=== PATIENT | female | born 1940 | race Caucasian/White ===

== ENCOUNTER → 2017-02-16 | Outpatient (CLI) | payer MEDICARE, BC ==
[~2017-02-16] MED LIST: ACETAMINOPHEN650 M2 PO; ALBUTEROL17 GM INH; ALLEGRA PO; ALLEGRA180 MG PO; ASPIRIN PO; ASPIRIN81 M1 PO; ASPIRIN81 M2 PO; ASPIRIN81 MG PO; AZITHROMYCIN250 MG PO; BUSPIRONE HCL10 M1 PO; BUSPIRONE HCL10 MG PO; CALCIUM + D PO; CALCIUM + VIT1 EACH PO; CALCIUM + VITAM1 TAB PO; CALCIUM1 TAB.CHEW PO; COUGHTAB200 MG PO; COZAAR25 MG PO; CRESTOR PO; DEMADEX PO; DEMADEX10 MG PO; DOXYCYCLINE HY100 M3 PO; FAMOTIDINE PO; FERROUS SULFATE1 TAB PO; FLUOXETINE HCL40 M1 PO; GLUCOPHAGE500 MG PO; HUMALOG100 U/ML SQ; HUMALOG100 U/ML SUBQ; HUMALOG100 UNIT/1; HUMALOG100 UNIT/1 SUBQ; LANTUS100 U/ML INJ; LANTUS100 U/ML SUBQ; LANTUS100 UNITS/ SQ; LEVOTHROID125 MCG; LOMOTIL TABLET1 TAB PO; LORTAB 10-5001 EACH PO; LOSARTAN POTASS50 MG PO; LOVASTATIN20 M1 PO; LOVASTATIN20 M2 PO; LOW DOSE ASPIRI81 M2 PO; MAG-OX 400400 M1 PO; METFORMIN PO; MOBIC; PEPCID PO; PHENERGAN PR; PHENERGAN/CODEIN5 ML PO; POTASSIUM; PRILOSEC PO; PRILOSEC20 MG PO; PROZAC PO; SYNTHROID PO; SYNTHROID125 PO; TORSEMIDE10 M1 PO; VICTOZA0.6 MG/0.1 SQ; VICTOZA0.6 MG/0.1 SUBQ
--- NOTE | ~2017-02-16 | US37 ---
[facility] A Service of [facility] & [facility] RADIOLOGY TEXT RESULTS PATIENT: ELLY BUTTS LOCATION: CNIV : 40 UNIT #: [id number] AGE: [address]: Britney Villalta SEX: F ORDER DR: [id number] [facility] [address] [place], [place] [address] [id number] O MR#: [id number] Acc #: [id number] NAME: ELLY BUTTS. : 1940 SEX: F STUDY DATE/TIME: 02/16/2017 12:36 UNIT: CNIV ROOM: STUDY DESCRIPTION: US Carotid W/Doppler Bilateral Attending Physician: Britney Villalta A.P.R.N. Referring Physician: Britney Villalta A.P.R.N. Ordering Physician: Britney Villalta A.P.R.N. Primary Care Physician: Lux Torres M.D. MEDICAL IMAGING REPORT This report is preliminary unless electronic signature is present EXAM Bilateral carotid duplex, 02/16/2017. HISTORY Symptomatic carotid artery stenosis. FINDINGS Duplex imaging of the carotid arteries was performed. The right common carotid artery is patent. Heterogeneous hyperechoic plaque is seen in the right internal carotid artery, which is irregular, with posterior shadowing. Velocity in the right common carotid is 86, internal is 239/61 proximally, 85/8 mid portion, and 131/26 distally. External is 152 cm/sec. Right ICA:CCA ratio is 2.8. On the left side, the common carotid artery is patent. Plaque is seen in the left internal carotid artery. Velocity in the left common carotid is 124, internal is 90 proximally, 135 mid portion, 110 distally. External is 97 cm/sec. Left ICA:CCA ratio is 1.1. Antegrade flow is seen in the right and left vertebral arteries. IMPRESSION 1. Plaque with severe stenosis in the range of greater than 70% is seen in the right internal carotid artery proximally. 2. Plaque with 50% to 69% stenosis is seen in the mid internal carotid artery on the left side. 3. Antegrade flow is seen in the right and left vertebral arteries. Dictated by... [facility] A Service of [facility] & [facility] RADIOLOGY TEXT RESULTS PATIENT: ELLY BUTTS LOCATION: [facility] : 40 UNIT #: [id number] AGE: [address]: Britney Villalta SEX: F ORDER DR: Tonny Odonnell M.D. THIS IS AN ELECTRONICALLY VERIFIED REPORT Tonny Odonnell M.D. at 02/17/2017 9:44 AM Jason TD: 02/16/2017 18:09 JOB #: [id number] MEDICAL IMAGING REPORT Page 1 of 1 COPY
== END | disposition home or self-care (01) ==
LOC: CNIV 12:05
DX: I65.29 Occlusion and stenosis of unspecified carotid artery (principal); I65.23 Occlusion and stenosis of bilateral carotid arteries
CPT/HCPCS: 93880

== ENCOUNTER 2017-04-19 00:28 | Observation (INO) | payer MEDICARE, BC ==
--- NOTE | ~2017-04-19 | EKG ---
PATIENT: ELLY BUTTS UNIT #: [id number] Ventricular Rate: 72 BPM Atrial Rate: 72 BPM P-R Interval: 190 ms QRS Duration: 86 ms Q-T Interval: 444 ms QTC Calculation(Bezet): 486 ms P [place]: 83 degrees Calculated R [place]: 67 degrees Calculated T [place]: 82 degrees Diagnosis Line: Normal sinus rhythm with sinus arrhythmia Diagnosis Line: Poor R wave progression questionable lead position Diagnosis Line: or body habitus Diagnosis Line: Borderline ECG Diagnosis Line: No previous ECGs available Diagnosis Line: Confirmed by STEWART OVALLES MD ([id number]) on Diagnosis Line: 04/19/2017 10:46:56 PM INTERPRETING MD: PAUL
--- NOTE | ~2017-04-19 | A ---
[facility] Nutrition Therapy DATE: 04/20/17 Patient: ELLY BUTTS Physician: EDWARDO Address: [address] Room/Bed: [address] [place] [address], Zip: [place] [address] Admit Date: 04/19/17 Date of : 40 Height: Weight: 142 64.8 NUTRITIONAL ASSESSMENT: REASON: Consult re: BM diet education Dx: high blood sugar PMH: DM, HTN, hypothyroidism, depression Anthropometrics: ht: 5'4" wt: 142# (64.5 kg) BMI: 24 Labs: Glu 195, Phos 2.1, accuchecks 90-159, HgbA1c 9.9, GFR 48.7 Meds: levemir, novolog, lipitor, pepcid, zofran, synthroid, NaCl I/O & Bowel function: 2663/5 Skin Integrity: normal Assessment: Chart reviewed, events noted. Pt seen for consult re: diabetes diet education. RD internal communications specialist visited pt at bedside and provided written and verbal diet education for diabetes and carbohydrate counting. Pt reports loosely following a diabetic diet at home. RD internal communications specialist answered several questions from pt regarding foods to eat and how to count carbs. Pt had no other questions at this time. Intervention: DM diet education Recommendations: 1. Pt would benefit from seeing an outpatient RD and/ or attending classes at her local health dept. Please consult RD for any further nutritional needs. Respectfully, BALAJI COREA, [employer] [facility] cc: client file
--- NOTE | ~2017-04-19 | DS ---
Unit #: [id number] #: [id number] Patient: ELLY BUTTS [id number] [address] [address] [id number] I MR#: [id number] NAME: ELLY BUTTS. ROOM: 567 Age: 76 Sex: F Admission Date: 04/19/2017 : 1940 Discharge Date: 04/22/2017 Attending Physician: Wei Lucas M.D. Primary Care Physician: Lux Torres M.D. DISCHARGE SUMMARY ADMISSION DIAGNOSES 1. Diabetic ketoacidosis. 2. Hypertension. DISCHARGE DIAGNOSES 1. Non versus mild diabetic ketoacidosis hyperglycemia. 2. Hypertension. 3. Hypoglycemia, improving. 4. Hypokalemia, resolved. 5. Hypomagnesemia, improving. 6. Anxiety. 7. History of major depressive disorder, chronic, recurrent, established with Dr. Curry at [facility]. 8. Noncompliance with home insulin regimen versus inability to consistently take insulin secondary to forgetfulness. CONSULTANTS 1. Lizeth Lujan M.D.- Endocrinology. 2. basket turner for diabetes mellitus diet education. PROCEDURES None. CONDITION Stable. DISPOSITION Home with family. RECENT DIAGNOSTIC STUDIES Hemoglobin A1c 9.9, sodium 140, potassium 4.3, chloride 109, CO2 25, glucose 194, BUN 15, creatinine 1.0, calcium 8.6, magnesium 1.6, TSH 1.32, WBC 9.0, hemoglobin 14.9, hematocrit 45.6, platelets 262,000. Beta-hydroxybutyrate on admission 3.13. IMAGING: CT of the head without contrast. Impression - no acute intracranial findings. Portable chest x-ray. Impression - no active process. DISCHARGE MEDICATIONS Pending further recommendations of Dr. Lujan who is to see the patient prior to discharge today: Unit #: [id number] #: [id number] Patient: ELLY BUTTS 1. Mag ox 400, one p.o. b.i.d. x10 days. 2. Fluoxetine 40 mg p.o. b.i.d. 3. BuSpar 10 mg p.o. b.i.d. 4. Torsemide 10 mg p.o. daily. 5. Lovastatin 20 mg p.o. daily. 6. Cozaar 25 mg p.o. daily. 7. Pepcid 20 mg p.o. daily. 8. Aspirin 81 mg p.o. daily. 9. Calcium plus vitamin D plus vitamin K, two tabs, 600 mg p.o. b.i.d. 10. Synthroid 100 mcg p.o. daily. Please note the following changes to the patient's home insulin medication - the patient has been receiving Levemir during the hospitalization as an auto-substitution by the pharmacy. At the time of this dictation, the patient is receiving the following anti-diabetic medications: 1. Levemir 10 units subcu in the morning. 2. Insulin aspart U 100 insulin, 2 units subcu t.i.d. before meals. 3. NovoLog U 100 insulin, 1 unit for every 50 mg over blood sugar of 200. Again, any changes to these medications will be made by Dr. Lujan prior to discharge today. DISCHARGE INSTRUCTIONS The patient is to call and schedule a followup appointment with her primary care physician in five to seven days. She is also to call and schedule a followup appointment with Dr. Lujan per his recommendations when he sees her this afternoon. The patient is to follow a constant carbohydrate diet. HOSPITAL COURSE The patient is a 76-year-old female who presented to [facility] on the date of admission with complaints of feel bad. She was complaining of dizziness with associated nausea as well as polyuria and polydipsia. Symptoms had progressed over the past week. Accu-Chek in the emergency department revealed a blood sugar of 497. The patient was diagnosed with mild DKA; however, was placed on non-DKA insulin drip protocol. The patient received hydration with IV fluids and her blood glucose gradually improved. Insulin drip was ultimately discontinued and patient was transferred to long acting as well as insulin at mealtimes. The patient was noted to have several hypoglycemic episodes throughout the 24 hour period. At that time, Dr. Lujan was consulted for further endocrine evaluation and management. The patient reported to me that she often forgets to take her insulin at home. She also tells me that she has had episodes of hypoglycemia at home and has been seeing Dr. Lux Torres, her primary care physician, for diabetic management. She has reported hypoglycemic episodes to him and, per review of the office records, he has made small adjustments in her insulin dosages. The patient also tells me that she was previously under the care of Dr. Lujan but has not been following up with him as recommended. The patient was evaluated by Dr. Lujan yesterday afternoon and patient was placed on Levemir 10 units daily in the morning, NovoLog subcu 2 units with each meal, and NovoLog sliding scale insulin, 1 unit for every 50 mg that her blood sugar is over 200. The patient's blood sugars have been elevated without hypoglycemic episodes today. She is awake, alert and asking to go home. She has been mildly tearful today and verbalized stress because of her recent hospitalization. She will follow up both with Dr. Torres, Dr. Lujan and Dr. Curry at [facility] Unit #: [id number] #: [id number] Patient: [facility] as dictated above. We are awaiting evaluation by Dr. Lujan at the time of this dictation. The nurses are to call prior to DC. Dictated by... Chelsy Posada A.P.R.N. for Asher Alexis/allyn TD: 04/24/2017 08:06 JOB #: [id number] DISCHARGE SUMMARY Page 1 of 1 X Chelsy Posada APRN X DISCHARGE SUMMARY
--- NOTE | ~2017-04-19 | CO ---
Unit #: [id number] #: [id number] Patient: ELLY BUTTS [id number] [facility]. [place], [place] [address] [id number] MR#: [id number] NAME: ELLY BUTTS. ROOM: 567 Age: 76 Sex: F Admission Date: 04/19/2017 : 1940 Attending Physician: Wei Lucas M.D. Primary Care Physician: Lux Torres M.D. CONSULTATION REPORT REASON FOR CONSULTATION Management of diabetes mellitus. HISTORY OF PRESENT ILLNESS This is a 76-year-old female with history of type 2 diabetes mellitus, GERD, history of blood clots, type 2 diabetes mellitus, insulin dependent, hypothyroidism, hypertension, and anxiety disorder, was presented to the emergency room for the generalized weakness and high blood sugars. On her arrival in the emergency room, her blood glucose levels were very high. She has some positive ketones. She was started on insulin drip, which she was transferred to the unit bed. Insulin drip was discontinued. She was treated with the subcu insulin. Currently, the patient has been on Levemir 12 units in the morning and 13 units at bedtime; however, the patient did receive 25 units of Lantus when the insulin drip was discontinued this morning. The patient had a blood glucose level of 46 and she has been having recurrent episodes of hypoglycemia this evening too. I have been asked to see the patient for further management. PAST MEDICAL HISTORY See HPI. MEDICATIONS Now medication list is reviewed. The patient is on Lantus 30 units daily in the morning, Humalog 10 units with the evening meal. Other medication includes Prozac, losartan, Lasix, buspirone, aspirin, Pepcid. ALLERGIES To sulfa drugs, levofloxacin, latex, ibuprofen. SOCIAL HISTORY Lives at home. Smokes half pack per day. Declines alcohol or illicit drugs. Lives by herself. FAMILY HISTORY Noncontributory. REVIEW OF SYSTEMS A 12-point review of systems completed, is unremarkable except as noted in HPI. PHYSICAL EXAMINATION GENERAL: She is awake, alert, oriented to time, place, and person. VITAL SIGNS: She is afebrile. Temperature 98.4, pulse 67, blood pressure 124/50. Unit #: [id number] #: [id number] Patient: ELLY BUTTS HEENT: EOMI. Pupils equally reactive to light. NECK: Supple. No thyromegaly noted. CHEST: Good air entry. CVS: Regular rhythm. No murmurs. ABDOMEN: Soft and nontender. Bowel sounds positive. EXTREMITIES: No edema noted. DIAGNOSTIC STUDIES LABORATORY RESULTS: On her labs, glucose was 46 this morning. Sodium 138, potassium 3.4, chloride 111, CO2 is 22, mag is 1.5, phosphorus 2.1. A1c is 9.9. TSH is 1.3. ASSESSMENT The patient had type 2 diabetes mellitus, admitted with the hyperosmolar hyperglycemia and treated with insulin drip, which has been discontinued. The patient has been having recurrent episodes of hypoglycemia, on the subcu insulin. PLAN We will change the Levemir to 10 units in the morning daily, NovoLog 2 units subcu with each meal. Get the nutrition consult. Discussed with the patient at the need for compliance with her medications and her diet. Discussed the patient at length. The goals of the diabetes treatment and the A1c goal between 7 and 8. We will follow the patient as an outpatient. Thanks again for consultation. Dictated by... Asher Velarde/katina TD: 04/22/2017 13:36 JOB #: [id number] CONSULTATION REPORT Page 1 of 1 X Lizeth Lujan MD CONSULTATION REPORT
--- NOTE | ~2017-04-19 | CR72 ---
[facility] A Service of [facility] RADIOLOGY TEXT RESULTS PATIENT: ELLY BUTTS LOCATION: [facility] 5601 : 40 UNIT #: [id number] AGE: [address]: Wei Lucas MD SEX: F ORDER DR: [id number] [facility] [address] [place], [place] [address] [id number] MR#: [id number] Acc #: [id number] NAME: ELLY BUTTS : 1940 SEX: F STUDY DATE/TIME: 04/19/2017 1:56 UNIT: LIZZY ROOM: STUDY DESCRIPTION: CR Chest Single View Portable Attending Physician: Corey Amos M.D. Ordering Physician: Corey Amos M.D. Primary Care Physician: Lux Torres M.D. MEDICAL IMAGING REPORT This report is preliminary unless electronic signature is present EXAM Portable chest INDICATION Shortness of air and weakness today. PROCEDURE Frontal view chest. COMPARISON 12/13/2015 FINDINGS Heart size is normal. No dense consolidation, pleural fluid or pneumothorax. IMPRESSION No active process. Dictated by... Jaquan Grover M.D. THIS IS AN ELECTRONICALLY VERIFIED REPORT Jaquan Grover M.D. at 04/19/2017 10:23 PM EED/michael TD: 04/19/2017 04:02 JOB #: [id number] MEDICAL IMAGING REPORT [facility] A Service of [facility] RADIOLOGY TEXT RESULTS PATIENT: ELLY BUTTS LOCATION: [facility] 567 : 40 UNIT #: [id number] AGE: [address]: Wei Lucas MD SEX: F ORDER DR: Page 1 of 1 COPY
--- NOTE | ~2017-04-19 | HP ---
Unit #: [id number] #: [id number] Patient: ELLY BUTTS [id number] [address] [address] [id number] I MR#: [id number] NAME: ELLY BUTTS. ROOM: 567 Age: 76 Sex: F Admission Date: 04/19/2017 : 1940 Attending Physician: Wei Lucas M.D. Primary Care Physician: Lux Torres M.D. HISTORY AND PHYSICAL CHIEF COMPLAINT Feel bad. HISTORY OF PRESENT ILLNESS The patient is a 76-year-old diabetic female who presented to [facility] secondary to feeling bad. She states that she has been somewhat dizzy and she has had some nausea. She has had associated polyuria and polydipsia. Symptoms have been progressive over the past week or so. She denies any alleviating factors. In the emergency department she is noted to have blood sugar of 497. PAST MEDICAL HISTORY Diabetes, hypertension, hypothyroidism, depression. PAST SURGICAL HISTORY Hysterectomy, cholecystectomy, cataract surgery, foot surgery, she has had a vein stripping. SOCIAL HISTORY The patient lives alone, denies alcohol, tobacco and illicit drug use. She has a son in town. ALLERGIES Sulfa, Levaquin and latex. REVIEW OF SYSTEMS A 10-point review of systems was obtained, negative except as per HPI. FAMILY HISTORY Reviewed and noncontributory in this 76-year-old female. HOME MEDICATIONS 1. Aspirin 81 mg daily. 2. Pepcid 20 mg daily. 3. Calcium plus vitamin D 600 mg p.o. b.i.d. 4. Humalog 10 units a.c. 5. Lantus 30 units daily. 6. BuSpar 10 mg p.o. b.i.d. 7. Fluoxetine 40 mg p.o. b.i.d. 8. Losartan 25 mg p.o. daily. 9. Furosemide 10 mg p.o. daily. 10. Lovastatin 20 mg daily. 11. Synthroid 100 mcg p.o. daily. Unit #: [id number] #: [id number] Patient: ELLY BUTTS PHYSICAL EXAMINATION VITAL SIGNS: Temperature 97.6. Pulse 65. Blood pressure 140/65. GENERAL: A 76-year-old female in no acute distress, who appears stated age. HEENT: Pupils are equally round. Extraocular movements intact. Mucous membranes dry. NECK: Supple. No JVD. No lymphadenopathy. CARDIAC: Regular rate and rhythm. No murmurs, gallops or rubs. LUNGS: Clear to auscultation bilaterally. ABDOMEN: Nontender, nondistended. Bowel sounds positive. EXTREMITIES: No cyanosis, clubbing or edema. They are warm and dry. PSYCHIATRIC: Alert and oriented x3. Affect is appropriate. NEUROLOGICAL: Cranial nerves II-XII intact grossly. The patient moves all extremities equally and with purpose. SKIN: No rashes, bruises or ulcers. MUSCULOSKELETAL: No muscle or joint pain. No muscle or joint swelling. DIAGNOSTIC STUDIES LABORATORY: The patient's blood sugar is 497, anion gap is 15, beta hydroxybutyrate is 3.13. IMAGING: CT head shows no acute abnormalities. Chest x-ray shows no active process. ASSESSMENT AND PLAN 1. Diabetic ketoacidosis: The patient has been started on insulin drip per protocol. Fluids and potassium replacement as per protocol as well. 2. Hypertension: Continue home meds. 3. Prophylaxis: The patient has been started on Lovenox. Dictated by Wei Lucas M.D. PAZ/raiel TD: 04/21/2017 20:50 JOB #: [id number] HISTORY AND PHYSICAL Page 1 of 1 X Wei Lucas MD HISTORY AND PHYSICAL
--- NOTE | ~2017-04-19 | CT71 ---
[facility] A Service of [facility] RADIOLOGY TEXT RESULTS PATIENT: ELLY BUTTS LOCATION: [facility] : 40 UNIT #: [id number] AGE: [address]: Wei Lucas MD SEX: F ORDER DR: [id number] [facility] [address] [facility] [facility] [place], [place] [address] [id number] I MR#: [id number] Acc #: [id number] NAME: ELLY BUTTS : 1940 SEX: F STUDY DATE/TIME: 04/19/2017 2:52 UNIT: [facility] ROOM: [facility] STUDY DESCRIPTION: CT Head Wo Contrast Attending Physician: Wei Lucas M.D. Ordering Physician: Corey Amos M.D. Primary Care Physician: Lux Torres M.D. MEDICAL IMAGING REPORT This report is preliminary unless electronic signature is present EXAM CT head without contrast INDICATIONS Hyperglycemia, confusion today. PROCEDURE Unenhanced CT head. This CT exam was performed with one or more of the following radiation dose reduction techniques: Automatic exposure control, adjustment of mA and/or kV according to patient size, and iterative reconstruction. COMPARISON None FINDINGS No acute hemorrhage, abnormal mass effect, extraaxial collection, or hydrocephalus. No convincing evidence for acute or early subacute large territory infarct. No depressed calvarial fracture. Paranasal sinuses mastoid air cells clear. IMPRESSION No acute intracranial findings. Dictated by... Jaquan Grover M.D. THIS IS AN ELECTRONICALLY VERIFIED REPORT Jaquan Grover M.D. at 04/19/2017 10:22 PM EED/aa TD: 04/19/2017 13:10 [facility] A Service [facility] RADIOLOGY TEXT RESULTS PATIENT: ELLY BUTTS LOCATION: [facility] : 40 UNIT #: [id number] AGE: [address]: Wei Lucas MD SEX: F ORDER DR: ROBERT #: [id number] MEDICAL IMAGING REPORT Page 1 of 1 COPY
[~2017-04-19 00:28] MED LIST changes: -ASPIRIN81 MG PO; -CALCIUM + VIT1 EACH PO; -FAMOTIDINE PO; -HUMALOG100 UNIT/1; -HUMALOG100 UNIT/1 SUBQ; -MAG-OX 400400 M1 PO; -TORSEMIDE10 M1 PO
[2017-04-19 02:03] LABS: BASOPHIL# 0.1 X10e3 (0-0.3); BASOPHIL% 1.2 % (0-2.5); EOSINOPHIL# 0.2 X10e3 (0-0.7); EOSINOPHIL% 2.6 % (0.0-7.0); HEMATOCRIT 45.6 % (35.0-45.0); HEMOGLOBIN 14.9 gm/dL (12.0-16.0); LYMPHOCYTE# 2.5 X10e3 (1.0-3.5); LYMPHOCYTE% 27.9 % (17.0-45.0); MEAN CELL VOLUME 93.1 FL (83-96); MEAN CORPUSCULAR HEMOGLOBIN 30.5 PG (28-34); MEAN CORPUSCULAR HGB CONC 32.7 g/dL (30-36); MEAN PLATELET VOLUME 8.1 FL (6.5-11.5); MONOCYTE# 0.7 X10e3 (0-1.0); MONOCYTE% 7.6 % (3.0-12.0); NEUTROPHIL# 5.5 X10e3 (1.5-7.1); NEUTROPHIL% 60.7 % (40-75); PLATELET COUNT 262 X10e3 (140-420)
[2017-04-19 02:04] LABS: DIFF IND NO
[2017-04-19 02:16] LABS: POC - CKMB 2.5 ng/mL (0.0-7.9); POC - TROPONIN <0.05 ng/mL (<=0.05)
[2017-04-19 02:18] LABS: PARTIAL THROMBOPLASTIN TIME 27.5 SECONDS (23.5-31.3); PROTHROMBIN TIME (PATIENT) 10.4 SECONDS (10.0-11.7)
[2017-04-19 02:26] LABS: ALBUMIN SERUM 4.2 g/dL (3.5-5.0); BILIRUBIN, DIRECT 0.3 mg/dL (0.0-0.2); BILIRUBIN,INDIRECT 1.1 mg/dL (0.0-0.9); BILIRUBIN,TOTAL 1.4 mg/dL (0.2-2.0); BUN/CREATININE RATIO 16.87; CALCIUM SERUM 9.2 mg/dL (8.4-10.2); CREATININE SERUM 1.6 mg/dL (0.6-1.4); POTASSIUM 4.1 mmol/L (3.5-5.1); PROTEIN TOTAL SERUM 7.4 g/dL (6.0-8.3)
[2017-04-19 02:58] LABS: URINE SOURCE CLEAN CATCH
[2017-04-19 03:00] LABS: URINE APPEARANCE CLEAR; URINE BILIRUBIN NEG (NEG); URINE BLOOD NEG (NEG); URINE COLOR YELLOW; URINE GLUCOSE >1000 MG/DL (NEG); URINE KETONE 1+ (NEG); URINE LEUKOCYTE ESTERASE NEG (NEG); URINE NITRATE NEG (NEG); URINE PROTEIN NEG (NEG); URINE SPECIFIC GRAVITY 1.022 (1.003-1.035); URINE UROBILINOGEN 0.2 MG/DL (NEG)
[2017-04-19 03:29] LABS: CULTURE INDICATED? NO
[2017-04-19 04:32] LABS: ARTERIAL BLD GAS O2 SATURATION 90.7 % (90.0-100.0); ARTERIAL BLOOD GAS CARBOXY HB 2.9 %sat (0.0-9.0); ARTERIAL BLOOD GAS HCO3 18.2 mmol/L; ARTERIAL BLOOD GAS MET HB 0.6 %sat (0.0-2.0); ARTERIAL BLOOD GAS PCO2 33.4 mmHg (35.0-45.0); ARTERIAL BLOOD GAS pH 7.345 (7.350-7.450)
[2017-04-19 04:33] LABS: ARTERIAL BLOOD GAS ALLEN TEST NORMAL; ARTERIAL BLOOD GAS ART SITE LEFT RADIAL; ARTERIAL BLOOD GAS DELIVERY ROOM AIR; ARTERIAL BLOOD GAS PO2 66.4 mmHg (80.0-100); ARTERIAL DRAW? YES
[2017-04-19] MEDS ORDERED: SYNTHROID PO (04:39)
[2017-04-19] MEDS ORDERED: TORSEMIDE10 M1 PO (04:40)
[2017-04-19] MEDS ORDERED: COZAAR25 MG PO (04:40)
[2017-04-19] MEDS ORDERED: FLUOXETINE HCL40 M1 PO (04:40)
[2017-04-19] MEDS ORDERED: LOVASTATIN20 M2 PO (04:40)
[2017-04-19] MEDS ORDERED: BUSPIRONE HCL10 M1 PO (04:41)
[2017-04-19] MEDS ORDERED: HUMALOG100 UNIT/1 SUBQ (04:42)
[2017-04-19] MEDS ORDERED: LANTUS100 U/ML SUBQ (04:42)
[2017-04-19] MEDS ORDERED: ASPIRIN81 MG PO (04:43)
[2017-04-19] MEDS ORDERED: FAMOTIDINE PO (04:43)
[2017-04-19] MEDS ORDERED: CALCIUM + VIT1 EACH PO (04:43)
[2017-04-19 14:59] LABS: BUN/CREATININE RATIO 21.33; CALCIUM SERUM 8.9 mg/dL (8.4-10.2); CREATININE SERUM 1.5 mg/dL (0.6-1.4); GLOM FILT RATE Estimated 33.5 mL/min (>60); POTASSIUM 4.5 mmol/L (3.5-5.1)
[2017-04-20 07:04] LABS: BUN/CREATININE RATIO 17.27; CALCIUM SERUM 8.7 mg/dL (8.4-10.2); CREATININE SERUM 1.1 mg/dL (0.6-1.4); GLOM FILT RATE Estimated 48.7 mL/min (>60); POTASSIUM 3.7 mmol/L (3.5-5.1)
[2017-04-21 06:11] LABS: BUN/CREATININE RATIO 17.5; CALCIUM SERUM 8.5 mg/dL (8.4-10.2); CREATININE SERUM 0.8 mg/dL (0.6-1.4); GLOM FILT RATE Estimated 71.7 mL/min (>60); MAGNESIUM 1.5 mg/dL (1.6-3.0); POTASSIUM 3.4 mmol/L (3.5-5.1)
[2017-04-22 07:42] LABS: CALCIUM SERUM 8.6 mg/dL (8.4-10.2); GLOM FILT RATE Estimated 54.7 mL/min (>60); MAGNESIUM 1.6 mg/dL (1.6-3.0); POTASSIUM 4.3 mmol/L (3.5-5.1)
[2017-04-22] MEDS ORDERED: MAG-OX 400400 M1 PO (18:00)
[2017-04-22] MEDS ORDERED: HUMALOG100 UNIT/1 (18:04)
== END 2017-04-22 20:16 | disposition home or self-care (01) ==
LOC: CED 00:28 → CEDOF 05:16 → C5C 05:16 → CEDOF 05:25 → CED 05:25 → CEDOF 06:50 → C5C 07:54 → CEDOF 07:54 → C5C 07:54
PROVIDERS: Emergency Medicine; Internal Medicine; Nurse Practitioner
DX: E13.10 Other specified diabetes mellitus with ketoacidosis without coma (principal); Z79.4 Long term (current) use of insulin; Z91.14 Patient's other noncompliance with medication regimen; I10 Essential (primary) hypertension; E83.42 Hypomagnesemia; K21.9 Gastro-esophageal reflux disease without esophagitis; F41.9 Anxiety disorder, unspecified; Z79.82 Long term (current) use of aspirin; Z79.899 Other long term (current) drug therapy; F17.200 Nicotine dependence, unspecified, uncomplicated; Z90.710 Acquired absence of both cervix and uterus; Z90.49 Acquired absence of other specified parts of digestive tract; Z98.890 Other specified postprocedural states; Z88.2 Allergy status to sulfonamides; Z88.1 Allergy status to other antibiotic agents; Z91.040 Latex allergy status
CPT/HCPCS: 36415; 36600; 70450; 71010; 80048; 80076; 81003; 82010; 82553; 82803; 82947; 83036; 83735; 84443; 84484; 85025; 85610; 85730; 93005; 96361; 96374; 99285; G0378; J1815; J2405

== ENCOUNTER 2017-04-30 13:40 | Emergency (ER) | payer MEDICARE, BC ==
[~2017-04-30 13:40] MED LIST changes: +ASPIRIN81 MG PO; +CALCIUM + VIT1 EACH PO; +FAMOTIDINE PO; +HUMALOG100 UNIT/1; +HUMALOG100 UNIT/1 SUBQ; +MAG-OX 400400 M1 PO; +TORSEMIDE10 M1 PO
[2017-04-30 15:33] LABS: URINE SOURCE CLEAN CATCH
[2017-04-30 15:38] LABS: BASOPHIL% 0.2 % (0-2.5); EOSINOPHIL# 0.1 X10e3 (0-0.7); HEMATOCRIT 42.7 % (35.0-45.0); HEMOGLOBIN 14.1 gm/dL (12.0-16.0); LYMPHOCYTE# 1.6 X10e3 (1.0-3.5); LYMPHOCYTE% 22.7 % (17.0-45.0); MEAN CORPUSCULAR HEMOGLOBIN 30.4 PG (28-34); MONOCYTE# 0.5 X10e3 (0-1.0); MONOCYTE% 6.5 % (3.0-12.0); NEUTROPHIL# 4.9 X10e3 (1.5-7.1); NEUTROPHIL% 68.6 % (40-75); PLATELET COUNT 253 X10e3 (140-420); RED BLOOD COUNT 4.64 X10e (3.90-5.30); RED CELL DISTRIBUTION WIDTH 12.7 % (11.0-15.5); WHITE BLOOD COUNT 7.1 X10e3 (4.0-10.5)
[2017-04-30 15:41] LABS: DIFF IND NO
[2017-04-30 15:41] LABS: URINE APPEARANCE CLEAR; URINE BILIRUBIN NEG (NEG); URINE BLOOD TRACE (NEG); URINE COLOR YELLOW; URINE GLUCOSE >1000 MG/DL (NEG); URINE KETONE 2+ (NEG); URINE LEUKOCYTE ESTERASE NEG (NEG); URINE NITRATE NEG (NEG); URINE PROTEIN NEG (NEG); URINE SPECIFIC GRAVITY 1.026 (1.003-1.035); URINE UROBILINOGEN 0.2 MG/DL (NEG)
[2017-04-30 15:44] LABS: URINE BACTERIA AUWI NEG (NEGATIVE); URINE SQUAMOUS EPITHELIAL CELL NONE SEEN /[HPF]; UWBCS1 AUWI 0-2 (0-5)
[2017-04-30 15:49] LABS: CULTURE INDICATED? NO
[2017-04-30 16:08] LABS: ALBUMIN SERUM 3.9 g/dL (3.5-5.0); BETA HYDROXYBUTYRATE 2.67 MMOL/L (0.02-0.27); BILIRUBIN, DIRECT 0.3 mg/dL (0.0-0.2); BILIRUBIN,INDIRECT 1.2 mg/dL (0.0-0.9); BILIRUBIN,TOTAL 1.5 mg/dL (0.2-2.0); BUN/CREATININE RATIO 19.28; CALCIUM SERUM 8.8 mg/dL (8.4-10.2); CREATININE SERUM 1.4 mg/dL (0.6-1.4); GLOM FILT RATE Estimated 36.4 mL/min (>60); POTASSIUM 4.8 mmol/L (3.5-5.1)
[2017-04-30 18:01] LABS: BETA HYDROXYBUTYRATE 1.34 MMOL/L (0.02-0.27); CALCIUM SERUM 7.9 mg/dL (8.4-10.2); CREATININE SERUM 1.2 mg/dL (0.6-1.4); GLOM FILT RATE Estimated 43.9 mL/min (>60); POTASSIUM 4.1 mmol/L (3.5-5.1)
== END 2017-04-30 21:20 | disposition home or self-care (01) ==
LOC: CED 13:40
PROVIDERS: Emergency Medicine
DX: E13.10 Other specified diabetes mellitus with ketoacidosis without coma (principal); F32.9 Major depressive disorder, single episode, unspecified; F41.9 Anxiety disorder, unspecified; E03.9 Hypothyroidism, unspecified; Z90.49 Acquired absence of other specified parts of digestive tract; Z88.2 Allergy status to sulfonamides; Z91.040 Latex allergy status; Z88.1 Allergy status to other antibiotic agents
CPT/HCPCS: 36415; 80048; 80076; 81003; 82010; 82947; 85025; 96361; 96374; 99284